=== PATIENT | male | born 1970 | race Caucasian/White ===

== ENCOUNTER → 2016-04-14 | Emergency (ER) | payer MEDICAID ==
[~2016-04-14] VITALS: Ht 172.7 cm; Wt 63.5 kg
[~2016-04-14] MED LIST: ALBUTEROL SULF8.5 GM INH; AMBIEN; Activated Charcoal 50gm/240ml Btl ORAL ONE; BUPROPION HCL150 M3 ORAL; BUSPAR10 MG ORAL; CATAPRES0.1 MG ORAL; CLONIDINE; CLONIDINE 0.2M0.2 MG GT; DiphenhydrAMINE 50mg/ml Inj IM ONE; Haloperidol 5mg/ml Inj IM ONE; Haloperidol 5mg/ml Inj ONE; IBUPROFEN; KEPPRA; KEPPRA500 M4 ORAL; LISINOPRIL; LORazepam Inj 2mg/ml 1ml IM ONE; PHENOBARBITAL; SEROQUEL XR1 EACH PO; [UNRECOGNIZED DRUG - OTHER]; cloNIDine 0.2mg Tab ORAL ONE
[2016-04-14 14:40] VITALS: BP 172/115
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
[2016-04-14 17:01] VITALS: BP 152/91
[2016-04-14 17:02] LABS: ACETAMINOPHEN < 10 ug/mL (10-30); ALANINE AMINOTRANSFERASE 11 U/L (3-41); ALBUMIN/GLOBULIN RATIO 1.1 (1.0-2.7); ALCOHOL < 10 mg/dL; ANION GAP 14 (5-15); ASPARTATE AMINO TRANSFERASE 22 U/L (5-40); CALCIUM 9.1 mg/dL (8.6-10.2); CARBON DIOXIDE 27 mEQ/L (20-30); CHLORIDE 96 mEQ/L (98-107); CREATININE 1.1 mg/dL (0.7-1.2); GLOMERULAR FILTRATION RATE > 60 mL/min (>60); HEMOLYSIS 28; POTASSIUM 4.8 mEQ/L (3.4-4.9); SODIUM 137 mEQ/L (135-145); TOTAL PROTEIN 7.2 g/dL (6.6-8.7)
[2016-04-14 17:13] LABS: BASOPHILS % (AUTO) 0.7 % (0.0-2.0); EOSINOPHILS % (AUTO) 0.4 % (0.0-3.0); LYMPHOCYTES % (AUTO) 28.9 % (20.0-45.0); MEAN CORPUSCULAR HEMOGLOBIN 32.3 PG (27.0-31.0); MEAN CORPUSCULAR VOLUME 92 FL (80-99); MEAN PLATELET VOLUME 5.4 FL (6.5-10.1); MONOCYTES % (AUTO) 3.7 % (1.0-10.0); NEUTROPHILS % (AUTO) 66.2 % (45.0-75.0); PLATELET COUNT 289 K/UL (150-450); RED BLOOD COUNT 3.95 M/UL (4.70-6.10); RED CELL DISTRIBUTION WIDTH 12.7 % (11.6-14.8); WHITE BLOOD COUNT 9.9 K/UL (4.8-10.8)
[2016-04-14 22:00] VITALS: BP 147/87
[2016-04-14 22:15] VITALS: BP 144/89
[2016-04-14 22:30] VITALS: BP 149/86
[2016-04-14 23:03] VITALS: BP 142/85
[2016-04-15 01:08] VITALS: BP 137/86
--- NOTE | 2016-05-04 14:24 | Cardiology Report ---
APPROVED REPORT EKG Measurement Heart [id number] Normal sinus rhythm Possible Left atrial enlargement Borderline ECG
== END ==
LOC: EDUNIT# 14:15 → EDBD 14:30 → EMR 14:45
DX: Z76.0 Encounter for issue of repeat prescription (principal); I10 Essential (primary) hypertension; R45.1 Restlessness and agitation; F12.10 Cannabis abuse, uncomplicated; F31.9 Bipolar disorder, unspecified; R05 Cough; R45.851 Suicidal ideations; J45.909 Unspecified asthma, uncomplicated; E11.9 Type 2 diabetes mellitus without complications; Z88.8 Allergy status to other drugs, medicaments and biological substances; Z79.899 Other long term (current) drug therapy
CPT/HCPCS: 36415; 80053; 80300; 80329; 85025; 93005; 96372; 99284; J1200; J1630

== ENCOUNTER 2020-01-16 18:22 | Emergency (ER) | payer MEDICAID ==
[~2020-01-16] VITALS: Ht 180.3 cm; Wt 90.7 kg
[~2020-01-16 18:22] MED LIST changes: -Activated Charcoal 50gm/240ml Btl ORAL ONE; -DiphenhydrAMINE 50mg/ml Inj IM ONE; -Haloperidol 5mg/ml Inj IM ONE; -Haloperidol 5mg/ml Inj ONE; -LORazepam Inj 2mg/ml 1ml IM ONE; -cloNIDine 0.2mg Tab ORAL ONE
[2020-01-16 18:26] VITALS: BP 154/74
--- NOTE | 2020-01-16 18:26 | NUR ---
ED Nurse Note: Pt MCKENNA RA26 from a assisted c/o behavioral complaint. Pt was placed on hold for psychiatric evaluation of suicidal thoughts. He states he feels suicidal at his current living facility. He was aggressive with [employer] and EMS. Pt said he wants to hurt himself but no plan. AAox4, verbally responsive. Pt is restless and uncooperative. Suicidal precaution initiated. ERMD at bedside.
[2020-01-16] MEDS ORDERED: Lisinopril 10mg tab ORAL ONE (18:30)
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
--- NOTE | 2020-01-16 18:35 | NUR ---
Pt belongings placed in locker #3
--- NOTE | 2020-01-16 18:40 | NUR ---
ED Nurse Note: Pt refused bloodwork. ERMD notified.
--- NOTE | 2020-01-16 19:18 | NUR ---
HAND-OFF: Report given to Carole ORTEZ.
[2020-01-16 20:50] LABS: BASOPHILS % (AUTO) 0.7 % (0.0-2.0); EOSINOPHILS % (AUTO) 0.8 % (0.0-3.0); HEMATOCRIT 43.2 % (42.0-52.0); HEMOGLOBIN 15.4 G/DL (14.2-18.0); LYMPHOCYTES % (AUTO) 21.3 % (20.0-45.0); MEAN CORPUSCULAR VOLUME 89 FL (80-99); MONOCYTES % (AUTO) 4.6 % (1.0-10.0); NEUTROPHILS % (AUTO) 72.5 % (45.0-75.0); PLATELET COUNT 179 K/UL (150-450); RED BLOOD COUNT 4.84 M/UL (4.70-6.10); RED CELL DISTRIBUTION WIDTH 12.6 % (11.6-14.8); WHITE BLOOD COUNT 8.3 K/UL (4.8-10.8)
[2020-01-16 22:00] VITALS: BP 145/70
--- NOTE | 2020-01-16 22:00 | NUR ---
ED Nurse Note: Pt resting in bed with eyes closd, non-labored breathing , no signs of distress, will continue to monitor
[2020-01-16 22:02] LABS: ANION GAP 8 mmol/L (5-15); BLOOD UREA NITROGEN 10 mg/dL (7-18); CALCIUM 9.1 MG/DL (8.5-10.1); CARBON DIOXIDE 28 MMOL/L (21-32); CHLORIDE 103 MMOL/L (98-107); CREATININE 1.5 MG/DL (0.55-1.30); POTASSIUM 3.5 MMOL/L (3.5-5.1); SODIUM 139 MMOL/L (136-145)
[2020-01-16 22:06] LABS: ALANINE AMINOTRANSFERASE 14 U/L (12-78); ALBUMIN 3.9 G/DL (3.4-5.0); ALBUMIN/GLOBULIN RATIO 1.1 (1.0-2.7); ALKALINE PHOSPHATASE 85 U/L (46-116); ASPARTATE AMINO TRANSFERASE 20 U/L (15-37); BILIRUBIN,TOTAL 0.3 MG/DL (0.2-1.0)
[2020-01-17] VITALS (7 sets, daily range): BP systolic 128–134; BP diastolic 65–71
--- NOTE | 2020-01-17 02:00 | NUR ---
ED Nurse Note: Pt resting in bed with eyes closed nonlabored breathing, no signs of distress. will continue to monitor
--- NOTE | 2020-01-17 06:06 | NUR ---
ED Nurse Note: Pt resting in bed with eyes closed, no signs of distress, breakfast tray ordered
--- NOTE | 2020-01-17 06:56 | NUR ---
HAND-OFF: Report given to NEELIMA Archer.
--- NOTE | 2020-01-17 07:08 | NUR ---
ED Nurse Note: received report from kathie. pt is sleeping at this time, vss, nad noted. breakfast tray provided.
--- NOTE | 2020-01-17 10:30 | NUR ---
ED Nurse Note: DR. MARQUIS ASSESSING THE PATIENT Addendum: 01/17/20 at 1047 by ELIZABETHO ED Nurse Note: DR. MARQUIS LIFTED THE PATIENT'S [id number] HOLD
[2020-01-17] MEDS ORDERED: Trihexyphenidyl 2mg tab ORAL ONE (11:00)
--- NOTE | 2020-01-17 12:00 | NUR ---
ED Nurse Note: pt is sleeping, nad noted, vss.
--- NOTE | 2020-01-17 12:30 | NUR ---
ED Nurse Note: Mental health provider from [employer] Zuly Hatfielduirre [phone] Addendum: 01/17/20 at 1550 by MICHAEL provider is apart of [employer]
[2020-01-17 14:43] LABS: APPEARANCE,URINE CLEAR; BILIRUBIN, URINE NEGATIVE (NEGATIVE); COLOR,URINE PALE YELLOW; GLUCOSE, URINE (UA) NEGATIVE (NEGATIVE); KETONES,URINE NEGATIVE (NEGATIVE); LEUKOCYTE ESTERASE ,URINE NEGATIVE (NEGATIVE); NITRITE,URINE NEGATIVE (NEGATIVE); PH,URINE 7 (4.5-8.0); PROTEIN,URINE NEGATIVE (NEGATIVE); UROBILINOGEN,URINE NORMAL MG/DL (0.0-1.0)
--- NOTE | 2020-01-17 16:00 | NUR ---
ED Nurse Note: pt awake at this time, vss, nad noted. calm and cooperative.
--- NOTE | 2020-01-17 17:16 | NUR ---
ED Nurse Note: gave report to martha arvizu.
--- NOTE | 2020-01-17 17:30 | Consultation ---
DATE OF CONSULTATION: 01/17/2020 HISTORY OF PRESENT ILLNESS: The patient presented with depressive symptoms and suicidal ideation on a 5150. The patient presented with depressed mood, anhedonia, worthlessness, hopelessness, and decreased energy. The patient stated that he is suicidal with an intention to overdose on his medications depression. He has been having depressive symptoms and suicidal thoughts chronically. PAST PSYCHIATRIC HISTORY: Depression, off his medication, and several psychiatric hospitalizations. PAST MEDICAL HISTORY: None. ALLERGIES: No known drug allergies. SUBSTANCE ABUSE HISTORY: He denies any illicit drug use or alcohol. Urine toxicology is negative. MENTAL STATUS EXAMINATION: Alert and oriented times self, place, and situation. Mood is depressed. Affect is blunted, congruent with mood. Thought process is linear. Thought content, positive for suicidal thoughts. Cognition is intact. Insight and judgment is fair. ASSESSMENT: [place] I Major depressive disorder. [place] II Deferred. [place] III None. [place] IV Moderate. [place] V 20 PLAN: 1. We will discontinue the 5150 as he is agreeing to sign voluntarily. 2. The patient will be transferred to psychiatric unit. 3. Discussed with the ER physician. Jn Worley M.D. DR: CONNIE JOB#: [id number] CC:
--- NOTE | 2020-01-17 19:30 | NUR ---
ED Nurse Note: pt received from NEELIMA Zamarripa. pt appears to be asleep in bed, no acute distress is noted at this time. waiting on transportation to [facility]
--- NOTE | 2020-01-17 21:34 | NUR ---
ED Nurse Note: [id number] here to transport pt to [facility]
== END 2020-01-17 21:45 ==
LOC: EDBD 18:22 → EMR 18:37
DX: R45.1 Restlessness and agitation (principal); F91.9 Conduct disorder, unspecified; R45.851 Suicidal ideations; F31.9 Bipolar disorder, unspecified; I10 Essential (primary) hypertension; E78.5 Hyperlipidemia, unspecified; E11.9 Type 2 diabetes mellitus without complications; G40.909 Epilepsy, unspecified, not intractable, without status epilepticus; F12.90 Cannabis use, unspecified, uncomplicated; Z88.8 Allergy status to other drugs, medicaments and biological substances; Z79.899 Other long term (current) drug therapy
CPT/HCPCS: 36415; 80053; 80307; 81001; 84484; 85025; 93005; G0480; G0481; U0002; Z7502; 99284

== ENCOUNTER 2020-03-25 19:33 | Emergency (ER) | payer MEDICAID ==
[~2020-03-25] VITALS: Ht 170.2 cm; Wt 95.3 kg
[2020-03-25 19:35] VITALS: BP 196/140
--- NOTE | 2020-03-25 20:08 | NUR ---
ED Nurse Note: Pt brought in by EMS with report of intoxication. Pt reports he had x2 beers tonight. Pt is uncooperative and speech is garbled. [place] and drink provided. Pt is resting.
--- NOTE | 2020-03-25 20:12 | NUR ---
ED Nurse Note: Pt is sleeping on bed with arms crossed, pt responds to verbal command. Pt refusing lab draw. Provider aware.
--- NOTE | 2020-03-25 20:23 | Emergency Room Report ---
History of Present Illness General Chief Complaint: Behavioral Complaint Source: Patient, EMS Present Illness HPI Disclaimer: Please note that this report is being documented using DRAGON technology. This can lead to erroneous entry secondary to incorrect interpretation by the dictating instrument. HPI: This a 49-year-old male history of psych disorder, substance abuse presents from [facility] [place], operated by [facility] for behavioral changes. Patient noted to be aggressive and agitated. EMS had difficulty obtaining history from patient. Stated they found b eer bottles next to him. He reportedly has not been taking his full dose of Seroquel. Also has not been taking his antihypertensive medications. Patient is difficult on arrival. Not providing significant history. He is screaming at nurses and EMS. PMH: Reported substance abuse, psych issues, hypertension PSH: Unable to obtain from patient Allergies: Multiple listed in medical chart including Haldol, fentanyl, phenytoin Social Hx: Reported substance abuse Allergies: Coded Allergies: PHENYTOIN SODIUM (Verified Allergy, Intermediate, 09/18/12) PHENYTOIN SODIUM EXTENDED (Verified Allergy, Intermediate, 09/18/12) FENTANYL (Unverified Allergy, Unknown, 04/14/16) HALOPERIDOL (Unverified Allergy, Unknown, 04/14/16) COVID-19 Screening Contact w/high risk pt: No Experienced COVID-19 symptoms?: No COVID-19 Testing performed BUCKLE SEWER MACHINE: No Nursing Documentation-PMH Hx Cardiac Problems: Yes Hx Hypertension: Yes Hx Diabetes: Yes Hx Seizures: Yes Review of Systems All Other Systems: limited - Patient uncooperative with history Physical Exam Vital Signs Date Time Temp Pulse Resp B/P (MAP) Pulse Ox O2 Delivery O2 Flow Rate FiO2 03/25/20 19:35 98.1 60 15 196/140 (158) 98 Room Air General: Awake, slightly unsteady gait, appears intoxicated HEENT: NC/AT. EOMI. Resp: Normal work of breathing. Skin: Intact. No abrasions, laceration or rash over the exposed skin MSK: Normal tone and bulk. Moving all extremities. No obvious deformity. Neuro: Awake, agitated, combative with staff. Slightly slurred speech, somewhat unsteady gait Medical Decision Making Diagnostic Impression: Primary Impression: Agitation ER Course 49-year-old male brought in for agitation by EMS from [facility] [place], operated by [facility]. Differential includes but is not limited to intoxication, substance abuse, medication noncompliance, decompensated psychiatric disorder. Patient is initially refusing all labs. He has for something to eat and drink and then fell asleep in the room. Will reevaluate once he is more cooperative. Patient signed out to oncoming provider pending labs and ultimate disposition. Last Vital Signs Date Time Temp Pulse Resp B/P (MAP) Pulse Ox O2 Delivery O2 Flow Rate FiO2 03/25/20 20:05 18 Room Air 03/25/20 19:35 98.1 60 196/140 (158) 98 Signed Out To: Dr. Leavitt Referrals: [facility],REFERRING (PCP) Aditya Rodriguez MD Mar 25, 2020 20:23
--- NOTE | 2020-03-25 20:55 | NUR ---
ED Nurse Note: 2nd attempt to start IV and obtain bloodwork on pt. Pt refused, put hand in pants pocket. Luis A, water pollution control technician, also attempted to speak with pt, but pt continued to refuse.
--- NOTE | 2020-03-25 21:48 | NUR ---
ED Nurse Note: Pt is asleep with hand in his pocket. Still refusing IV/blood draw.
--- NOTE | 2020-03-25 22:26 | NUR ---
ED Nurse Note: Pt is resting, will talk to me when I walk past the room, but he will still not allow me to get IV/labs.
--- NOTE | 2020-03-25 23:07 | NUR ---
ED Nurse Note: Pt asked if he could go use the bathroom. I showed pt to bathroom and requested a urine sample. Pt reported we did not need a urine sample to take care of him. Pt reported to me he was not suicidal but wanted us to take care of him. I asked pt what he wanted us to do and if I could get labs drawn. Pt refused. Pt asked staff where [address] was and argued with staff about the treatment we were trying to provide. Pt advised he was not suicidal and did not want to hurt others. Pt eloped. Dr. Tree teague.
== END 2020-03-25 23:05 | disposition left against medical advice (07) ==
LOC: EDBD 19:33 → EDUNIT# 19:33 → EMR 19:59
DX: R45.1 Restlessness and agitation (principal); I10 Essential (primary) hypertension; Z88.8 Allergy status to other drugs, medicaments and biological substances; E11.9 Type 2 diabetes mellitus without complications; G40.909 Epilepsy, unspecified, not intractable, without status epilepticus
CPT/HCPCS: 99284